=== PATIENT | female | born 1990 | race American Indian/Alaskan Native ===

== ENCOUNTER 2018-03-27 07:12 | Emergency (ER) | payer BC ==
[2018-03-27 07:31] VITALS: RESP 18; BMI 37.7
--- NOTE | 2018-03-27 07:39 | ED PDOC ---
Arrival/HPI - General Historian: Patient - History of Present Illness Narrative History of Present Illness (Text): 03/27/18 07:36 27 yo F with no past significant medical history presenting with L ankle injury s/p mechanical fall. Per patient, she was walking to work earlier this morning when she slipped on the sidewalk and twisted her L ankle, falling and landing on the extremity. She denies any popping sensation, head trauma, LOC. She states she is unable to bear much weight on it. No other acute complaints at this time. ROS otherwise negative. PMHx: none PSHx: none Allergies: peanuts Home Medications: None FHx: DM Social Hx: denies alcohol, tobacco, illicit drug use PMD: none Time/Duration: Prior to Arrival Symptom Onset: Sudden Symptom Course: Unchanged Severity Level: Mild Activities at Onset: Light Context: Walking <Denzel Avalos - Last Filed: 03/27/18 08:43> <Ethan Khalil - Last Filed: 03/27/18 09:45> - General Chief Complaint: Lower Extremity Problem/Injury Time Seen by Provider: 03/27/18 07:13 Past Medical History - Provider Review Nursing Documentation Reviewed: Yes - Past History Past History: No Previous <Denzel Avalos - Last Filed: 03/27/18 08:43> Family/Social History - Physician Review Nursing Documentation Reviewed: Yes Family/Social History: Diabetes Smoking Status: Never Smoked Hx Alcohol Use: No Hx Substance Use: No Hx Substance Use Treatment: No <Denzel Avalos - Last Filed: 03/27/18 08:43> Allergies/Home Meds <Denzel Avalos - Last Filed: 03/27/18 08:43> <Ethan Khalil - Last Filed: 03/27/18 09:45> Allergies/Adverse Reactions: Allergies peanut Allergy (Verified 03/27/18 07:31) ITCHING Home Medications: Home Meds Medication Instructions Recorded Confirmed No Known Home Med 03/27/18 03/27/18 Review of Systems - Physician Review All systems were reviewed & negative as marked: Yes - Review of Systems Constitutional: Normal Eyes: Normal ENT: Normal Respiratory: Normal Cardiovascular: Normal Gastrointestinal: Normal Genitourinary Female: Normal Musculoskeletal: Arthralgias (L ankle). absent: Back Pain, Neck Pain, Joint Swelling, Myalgias Skin: Normal Neurological: Normal Endocrine: Normal Hemo/Lymphatic: Normal Psychiatric: Normal <Denzel Avalos - Last Filed: 03/27/18 08:43> Physical Exam - Physical Exam Narrative Physical Exam (Text): 03/27/18 07:42 TTP along L ATFL pain elicited with passive inversion of L ankle Vital Signs Reviewed: Yes Vital Signs Temp Pulse Resp BP Pulse Ox 03/27/18 07:24 98.8 F 106 H 18 138/84 99 Temperature: Afebrile Blood Pressure: Normal Pulse: Tachycardic Respiratory Rate: Normal Appearance: Positive for: Well-Appearing, Non-Toxic, Comfortable Pain Distress: Mild Mental Status: Positive for: Alert and Oriented X 3 - Systems Exam Head: Present: Atraumatic, Normocephalic Pupils: Present: PERRL Extroacular Muscles: Present: EOMI Conjunctiva: Present: Normal Ears: Present: Normal Mouth: Present: Moist Mucous Membranes Pharnyx: Present: Normal Neck: Present: Normal Range of Motion Respiratory/Chest: Present: Clear to Auscultation, Good Air Exchange. No: Respiratory Distress, Accessory Muscle Use, Wheezes, Rales, Rhonchi Cardiovascular: Present: Regular Rate and Rhythm, Normal S1, S2 Abdomen: Present: Normal Bowel Sounds. No: Tenderness, Distention, Peritoneal Signs, Rebound, Guarding Back: Present: Normal Inspection Upper Extremity: Present: Normal Inspection, Normal ROM, NORMAL PULSES, Capillary Refill < 2s. No: Cyanosis, Edema Lower Extremity: Present: Normal Inspection, NORMAL PULSES, Tenderness (TTP along ATFL ), Capillary Refill < 2 s. No: Edema, CALF TENDERNESS, Cyanosis, Swelling Neurological: Present: CN II-XII Intact, Speech Normal Skin: Present: Warm, Dry, Normal Color. No: Rashes Psychiatric: Present: Alert, Oriented x 3, Normal Insight, Normal Concentration <Denzel Avalos - Last Filed: 03/27/18 08:43> Vital Signs Temp Pulse Resp BP Pulse Ox 03/27/18 07:24 98.8 F 106 H 18 138/84 99 <Ethan Khalil - Last Filed: 03/27/18 09:45> Medical Decision Making ED Course and Treatment: 03/27/18 07:43 Impression: 27 yo AA female, no significant PMHx presenting with likely L ankle sprain s/p mechanical fall Plan --XR L ankle --ibuprofen 400 mg x1 --urine --monitor and disposition - RAD Interpretation Radiology Orders: 03/27/18 07:33 ANKLE LEFT 3 VIEWS ROUTINE [RAD] Stat - Medication Orders Current Medication Orders: Ibuprofen (Motrin Tab) 400 mg PO STAT STA Stop: 03/27/18 07:34 <Denzel Avalos - Last Filed: 03/27/18 08:43> ED Course and Treatment: 03/27/18 08:30 Xray unremarkable Negative thompsons test N/V intact: Mild pain w/ weight bearing. No knee pain. No midfoot pain. Haskell foot negative. Crutches and dipak wrap for home clear for d/c home. - RAD Interpretation Radiology Orders: 03/27/18 07:33 ANKLE LEFT 3 VIEWS ROUTINE [RAD] Stat - Medication Orders Current Medication Orders: Discontinued Medications Ibuprofen (Motrin Tab) 400 mg PO STAT STA Stop: 03/27/18 07:34 Last Admin: 03/27/18 08:01 Dose: 400 mg MAR Pain/Vitals Document 03/27/18 08:01 [facility] (Rec: 03/27/18 08:02 [facility] [id number]) Pain Reassessment Is This A Pain ReAssessment? No <Ethan Khalil - Last Filed: 03/27/18 09:45> Disposition/Present on Arrival - Present on Arrival Any Indicators Present on Arrival: No History of DVT/PE: No History of Uncontrolled Diabetes: No Urinary Catheter: No History of Decub. Ulcer: No History Surgical Site Infection Following: None - Disposition Have Diagnosis and Disposition been Completed?: Yes <Denzel Avalos - Last Filed: 03/27/18 08:43> - Present on Arrival Any Indicators Present on Arrival: No - Disposition Have Diagnosis and Disposition been Completed?: Yes Disposition Time: 08:30 <Ethan Khalil - Last Filed: 03/27/18 09:45> - Disposition Diagnosis: Left ankle sprain Disposition: HOME/ ROUTINE Condition: GOOD Discharge Instructions (ExitCare): Ankle Sprain Additional Instructions: GISELL ALVA, thank you for letting us take care of you today. Your provider was Ethan Khalil and you were treated for INJURY TO LEFT ANKLE. The emergency medical care you received today was directed at your acute symptoms. If you were prescribed any medication, please fill it and take as directed. It may take several days for your symptoms to resolve. Return to the Emergency Department if your symptoms worsen, do not improve, or if you have any other problems. Please contact your doctor or call one of the physicians/clinics you have been referred to that are listed on the Patient Visit Information form that is included in your discharge packet. Bring any paperwork you were given at discharge with you along with any medications you are taking to your follow up visit. Our treatment cannot replace ongoing medical care by a primary care provider outside of the emergency department. Thank you for allowing the [facility] team to be part of your care today. If you had an X-Ray or CT scan: A Radiologist will review the ED reading if any change in treatment is needed we will contact you. If you had a blood, urine, or wound culture: It will take several days for the results, if any change in treatment is needed we will contact you. If you had an STI test: It will take 48 hours for the results. Please call after 1 week if you have not heard back. Referrals: Shelly Edgar MD [Medical Doctor] - Follow up with primary Forms: [employer] ([place]), WORK NOTE
[2018-03-27 09:16] VITALS: BP 123/78; PULSE 92; TEMP 98; O2SAT 97
--- NOTE | 2018-03-27 09:57 | RAD ---
Date of service: 03/27/2018 PROCEDURE: Left Ankle Radiographs. HISTORY: r/o fracture COMPARISON: None FINDINGS: BONES: Normal. No fracture. JOINTS: Normal. No osteoarthritis. Ankle mortise maintained. Talar dome intact SOFT TISSUES: Normal. OTHER FINDINGS: None. IMPRESSION: Normal left ankle radiographs. Concordant results with the preliminary interpretation rendered by the emergency department physician procedure.
== END 2018-03-27 09:16 | disposition home or self-care (01) ==
LOC: ED 07:12
DX: S93.402A Sprain of unspecified ligament of left ankle, initial encounter (principal); W01.0XXA Fall on same level from slipping, tripping and stumbling without subsequent striking against object, initial encounter; Y92.480 Sidewalk as the place of occurrence of the external cause